=== PATIENT | female | born 1945 | race Caucasian/White ===

== ENCOUNTER 2017-12-22 16:13 | Emergency (ER) | payer MEDICARE ==
[~2017-12-22] VITALS: Ht 160 cm; Wt 71.3 kg
[2017-12-22] MEDS ORDERED: LIDOCAINE-MPF 2%, 2ML ONE ×2 (16:56→17:51)
[2017-12-22] MEDS ORDERED: DIPH,PERTUSS(ACELL),TET VAC/PF 0.5 ML IM-VACC ONE ×2 (17:00→17:23)
[2017-12-22] MEDS ORDERED: LIDOCAINE 2%, 20ML SQ ONE (17:00)
[2017-12-22] MEDS ORDERED: SILVER SULF. CRM 1% , 25GM ONE (17:52)
[2017-12-22] MEDS ORDERED: SILVER SULF. CRM 1% , 25GM TP ONE (18:00)
[2017-12-22 18:36] VITALS: BP 172/85
== END 2017-12-22 18:43 | disposition home or self-care (01) ==
LOC: ED 18:30
DX: S81.012A Laceration without foreign body, left knee, initial encounter (principal); S50.312A Abrasion of left elbow, initial encounter; Z87.891 Personal history of nicotine dependence; W19.XXXA Unspecified fall, initial encounter; Y93.89 Activity, other specified; Y92.89 Other specified places as the place of occurrence of the external cause; Y99.8 Other external cause status
CPT/HCPCS: 12004; 90471; 90715; 99284; J3490